=== PATIENT | female | born 1960 | race Caucasian/White ===

== ENCOUNTER 2017-03-12 18:58 | Emergency (ER) | payer OTHER ==
[~2017-03-12] VITALS: Ht 167.6 cm; Wt 54.5 kg
[2017-03-12 19:00] VITALS: BP 124/61; PULSE 57; RESP 18; TEMP 98; O2SAT 98
[2017-03-12] MEDS ORDERED: PRIL20TA2 PO (19:17)
[2017-03-12] MEDS ORDERED: SODIUM CHLOR 0.9% 1000 ML INJ 1,000 ML IV ONE (19:34)
--- NOTE | 2017-03-12 19:41 | PD ---
HPI Chief Complaint: Syncope/Near-Syncope Time Seen by Provider: 19:23 Travel History International Travel<30 days: No Contact w/Intl Traveler<30days: No Traveled to known affect area: No History of Present Illness HPI The patient is a 56-year-old female that had 2 syncopal episodes at home with brief loss of consciousness. There was no head trauma or any other trauma, she was caught by her . The first time she fainted she was standing and her caught her and later on the floor. She was diaphoretic. She then attempted to sit up and passed out again. There was no seizure activity. She has a history of low blood pressure and slow heart rate. She had slight nausea before the episode and still has some slight nausea. She denies any fever, vomiting or diarrhea. The patient is physically active and walked 4 miles today and spent some time in the sun at the [place]. She denies any history of heart disease. She denies any headache. She denies any focal neurologic change. Her only medication is [id number] Prilosec. She is in no pain. She denies any chest pain or shortness of breath. She does feel thirsty. PFSH Past Medical History Diminished Hearing: No Medical other: Yes (Acid reflux) Tetanus Vaccination: Unknown Influenza Vaccination: Yes ?: Not Menopausal: Yes : 2 Para: 2 Past Surgical History Genitourinary Surgery: Yes (Bladder dilation 1981) Social History Alcohol Use: Yes (Daily; 2 glass of wine) Tobacco Use: No Substance Use: No Allergies-Medications (Allergen,Severity, Reaction): Coded Allergies: No Known Allergies (Unverified , 03/12/17) Reported Meds & Prescriptions Reported Meds & Active Scripts Active Macrobid (Nitrofurantoin Monohydrate Macrocrystals) 100 Mg Capsule 100 Mg PO BID 10 Days Reported Prilosec (Omeprazole Magnesium) 20 Mg Tab 20 Mg PO DAILY Review of Systems Except as stated in HPI: all other systems reviewed are Neg Physical Exam Narrative GENERAL: The patient is alert, oriented 3 in no apparent distress. Her vital signs show heart rate of 57 but are otherwise normal. SKIN: Focused skin assessment warm/dry. HEAD: Atraumatic. Normocephalic. EYES: Pupils equal and round. No scleral icterus. No injection or drainage. ENT: No nasal bleeding or discharge. Mucous membranes pink and moist. NECK: Trachea midline. No JVD. CARDIOVASCULAR: Regular rate and rhythm. No murmur appreciated. RESPIRATORY: No accessory muscle use. Clear to auscultation. Breath sounds equal bilaterally. GASTROINTESTINAL: Abdomen soft, with minimal midline epigastric tenderness to direct palpation, nondistended. Hepatic and splenic margins not palpable. There is some left flank tenderness present. No right flank tenderness is present. MUSCULOSKELETAL: No obvious deformities. No clubbing. No cyanosis. No edema. NEUROLOGICAL: Awake and alert. No obvious cranial nerve deficits. Motor grossly within normal limits. Normal speech and gait. PSYCHIATRIC: Appropriate mood and affect; insight and judgment normal. Data Data Last Documented VS Vital Signs Date Time Temp Pulse Resp B/P Pulse Ox O2 Delivery O2 Flow Rate FiO2 03/12/17 20:06 67 17 112/55 67 17 116/52 66 17 111/50 03/12/17 19:00 98.0 98 Orders Electrocardiogram (03/12/17 19:34) Complete Blood Count With Diff (03/12/17 19:34) Comprehensive Metabolic Panel (03/12/17 19:34) Ckmb (Isoenzyme) Profile (03/12/17 19:34) Troponin I (03/12/17 19:34) Urinalysis - C+S If Indicated (03/12/17 19:34) Ecg Monitoring (03/12/17 19:34) Iv Access Insert/Monitor (03/12/17 19:34) Oximetry (03/12/17 19:34) Sodium Chloride 0.9% Flush (Ns Flush) (03/12/17 19:45) Sodium Chlor 0.9% 1000 Ml Inj (Ns 1000 M (03/12/17 19:34) Orthostatic Vital Signs (03/12/17 19:34) Urine Culture (03/12/17 19:52) Ondansetron Inj (Zofran Inj) (03/12/17 20:30) Ceftriaxone Inj (Rocephin Inj) (03/12/17 20:45) Labs Laboratory Tests Test 03/12/17 19:52 White Blood Count 15.5 TH/MM3 Red Blood Count 3.98 MIL/MM3 Hemoglobin 12.4 GM/DL Hematocrit 36.8 % Mean Corpuscular Volume 92.4 FL Mean Corpuscular Hemoglobin 31.1 PG Mean Corpuscular Hemoglobin 33.6 % Concent Red Cell Distribution Width 12.3 % Platelet Count 240 TH/MM3 Mean Platelet Volume 7.9 FL Neutrophils (%) (Auto) 78.3 % Lymphocytes (%) (Auto) 8.6 % Monocytes (%) (Auto) 8.4 % Eosinophils (%) (Auto) 0.5 % Basophils (%) (Auto) 4.2 % Neutrophils # (Auto) 12.2 TH/MM3 Lymphocytes # (Auto) 1.3 TH/MM3 Monocytes # (Auto) 1.3 TH/MM3 Eosinophils # (Auto) 0.1 TH/MM3 Basophils # (Auto) 0.6 TH/MM3 CBC Comment AUTO DIFF Differential Comment AUTO DIFF CONFIRMED Platelet Estimate NORMAL Platelet Morphology Comment NORMAL Red Cell Morphology Comment NORMAL Urine Color YELLOW Urine Turbidity CLEAR Urine pH 5.5 Urine Specific [place] 1.014 Urine Protein NEG mg/dL Urine Glucose (UA) NEG mg/dL Urine Ketones NEG mg/dL Urine Occult Blood NEG Urine Nitrite NEG Urine Bilirubin NEG Urine Leukocyte Esterase TRACE Urine WBC 9-14 /hpf Urine WBC Clumps Urine Squamous Epithelial 0-5 /hpf Cells Urine Hyaline Casts 3-5 /lpf Urine Mucus MOD /lpf Microscopic Urinalysis Comment CULTURE INDICATED Sodium Level 142 MEQ/L Potassium Level 3.5 MEQ/L Chloride Level 107 MEQ/L Carbon Dioxide Level 26.2 MEQ/L Anion Gap 9 MEQ/L Blood Urea Nitrogen 13 MG/DL Creatinine 0.74 MG/DL Estimat Glomerular Filtration 81 ML/MIN Rate Random Glucose 89 MG/DL Calcium Level 8.7 MG/DL Total Bilirubin 0.4 MG/DL Aspartate Amino Transf 19 U/L (AST/SGOT) Alanine Aminotransferase 28 U/L (ALT/SGPT) Alkaline Phosphatase 111 U/L Total Creatine Kinase 65 U/L Troponin I LESS THAN 0.02 NG/ML Total Protein 7.0 GM/DL Albumin 3.7 GM/DL [facility] Medical Decision Making Medical Screen Exam Complete: Yes Emergency Medical Condition: Yes Medical Record Reviewed: Yes Interpretation(s) The CBC shows a white count of 15,500 with 78% neutrophils but is otherwise unremarkable. The complete metabolic profile shows a GFR of 81 but is otherwise unremarkable. The troponin I is normal and the CK is normal. The urine shows trace leukocyte esterase, 9-14 white cells and culture is indicated. Differential Diagnosis Cardiac syncopeunlikely, postural hypotension, electrolyte disorder, dehydration, renal insufficiency, pyelonephritis, cystitis Narrative Course The patient does not have any symptoms of cystitisdysuria, frequency or urgency but does have some slight left flank tenderness. She likely has a pyelonephritis. This would also explain the elevated white count and nausea. It is now 8:43 PM and the patient has no nausea. Plan: The patient be given Macrobid twice daily for 10 days, increase liquid intake and Zofran for nausea. Diagnosis Primary Impression: Syncopal episodes Additional Impression: Pyelonephritis Additional Instructions: Follow-up with your primary care physician when you get back to [place]. Increase liquid intake, it is necessary to establish a good urine flow through your kidneys when you have a urinary infection. The antibiotic is one tablet twice daily for 10 days and the nausea pill as one every 6 hours as needed for nausea. Med/Other Pt SpecificInfo: Prescription(s) given Scripts Ondansetron (Zofran)4 Mg Tab4 Mg PO Q6HR PRN (NAUSEA OR VOMITING) #12 TAB Ref 0 Prov:Kam Fitzpatrick MD 03/12/17 Nitrofurantoin Monohydrate Macrocrystals (Macrobid)100 Mg [id number] Mg PO BID 10 Days Ref 0 Prov:Kam Fitzpatrick MD 03/12/17 Disposition: 01 DISCHARGE HOME Condition: Stable Kam Fitzpatrick MD Mar 12, 2017 19:41
[2017-03-12] MEDS ORDERED: SODIUM CHLORIDE 0.9% FLUSH 10 ML FLUSH IVF PRN (19:45)
[2017-03-12 20:00] LABS: BLOOD, URINE NEG (NEG); GLUCOSE,URINE NEG (NEG); KETONE, URINE NEG (NEG); NITRITE,URINE NEG (NEG); PH, URINE 5.5 (5.0-8.5)
[2017-03-12 20:05] LABS: URINE COLOR YELLOW (YELLW/STRAW)
[2017-03-12 20:06] VITALS: BP_SYST 111; BP_SYST 112; BP_SYST 116; BP_DIAS 50; BP_DIAS 52; BP_DIAS 55; RESP 17
[2017-03-12 20:06] LABS: MUCUS URINE MOD /lpf (OCC)
[2017-03-12 20:07] LABS: CHLORIDE 107 MEQ/L (98-107); POTASSIUM 3.5 MEQ/L (3.5-5.1); SODIUM (NA) 142 MEQ/L (136-145); SQUAMOUS EPITHELIAL CELL URINE 0-5 /hpf (0-5)
[2017-03-12 20:08] LABS: COMMENT (UR) CULTURE INDICATED; CULTURE IF INDICATED CULTURE INDICATED
[2017-03-12 20:10] LABS: ANION GAP 9 MEQ/L (5-15); BICARBONATE 26.2 MEQ/L (21.0-32.0)
[2017-03-12 20:11] LABS: BLOOD UREA NITROGEN 13 MG/DL (7-18)
[2017-03-12 20:12] LABS: AUTOMATED NEUTROPHIL # 12.2 TH/MM3 (1.8-7.7); BASOPHIL # 0.6 TH/MM3 (0-0.2); BASOPHIL % 4.2 % (0.0-2.0); EOSINOPHIL # 0.1 TH/MM3 (0-0.4); EOSINOPHIL % 0.5 % (0.0-4.0); HEMATOCRIT 36.8 % (35.0-46.0); LYMPH % 8.6 % (9.0-44.0); LYMPHOCYTE # 1.3 TH/MM3 (1.0-4.8); MEAN CELL VOLUME 92.4 FL (80.0-100.0); MEAN CORPUSCULAR HEMOGLOBIN 31.1 PG (27.0-34.0); MEAN CORPUSCULAR HGB CONC 33.6 % (32.0-36.0); MONO % 8.4 % (0.0-8.0); NEUT % 78.3 % (16.0-70.0); PLATELET COUNT 240 TH/MM3 (150-450); RED BLOOD COUNT 3.98 MIL/MM3 (4.00-5.30); RED CELL DISTRIBUTION WIDTH 12.3 % (11.6-17.2); WHITE BLOOD COUNT 15.5 TH/MM3 (4.0-11.0)
[2017-03-12 20:13] LABS: ALT (GPT) 28 U/L (10-53); HEMO FLAGS AUTO DIFF
[2017-03-12 20:14] LABS: AST (GOT) 19 U/L (15-37); GLOMERULAR FILTRATION RATE 81 ML/MIN (>89)
[2017-03-12 20:15] LABS: TOTAL BILIRUBIN ADULT 0.4 MG/DL (0.2-1.0)
[2017-03-12 20:16] LABS: ALKALINE PHOSPHATASE 111 U/L (45-117)
[2017-03-12] MEDS ORDERED: ONDANSETRON HCL 4 MG/2 ML VIAL IV ONE (20:30)
[2017-03-12 20:31] LABS: CREATINE KINASE 65 U/L (26-192)
[2017-03-12 20:34] LABS: PLATELET ESTIMATE SMEAR NORMAL (NORMAL); PLATELET MORPHOLOGY NORMAL (NORMAL); SCAN/DIFF AUTO DIFF CONFIRMED
[2017-03-12] MEDS ORDERED: MACR100C2 PO (20:37)
[2017-03-12] MEDS ORDERED: ZOFR4TAB PO (20:44)
[2017-03-12] MEDS ORDERED: cefTRIAXone INJ 1,000 MG in SODIUM CHLORIDE 0.9% INJ 100 ML IV ONE (20:45)
[2017-03-12] MEDS ORDERED: NITROFURANTOIN MONOHYD MACROCR 100 MG CAP PO ONE (21:00)
[2017-03-12 21:09] VITALS: BP 120/58; PULSE 70; RESP 18; TEMP 98.4; O2SAT 99
--- NOTE | 2017-03-14 07:54 | EKG ---
Date Performed: 03/12/2017 Time Performed: 19:57:03 PTAGE: 56 years EKG: ELECTRONIC ATRIAL PACEMAKER LEFT VENTRICULAR HYPERTROPHY AND ST-T CHANGE ABNORMAL ECG NO PREVIOUS TRACING DOCTOR: Marie Salgado Interpretating Date/Time 03/14/2017 07:53:52
== END 2017-03-12 21:51 | disposition home or self-care (01) ==
LOC: PHED 18:58
DX: R55 Syncope and collapse (principal); N12 Tubulo-interstitial nephritis, not specified as acute or chronic
CPT/HCPCS: 80053; 81001; 82550; 84484; 85025; 87086; 93005; 96361; 96365; 99284; J0696; J7030